=== PATIENT | male | born 1990 | race Caucasian/White ===

== ENCOUNTER 2023-12-20 22:20 | Emergency (ER) | payer SELFPAY | END 2023-12-20 22:28 | disposition home or self-care (01) | LOC: EC 22:20 | DX: Z02.1 Encounter for pre-employment examination (principal) | CPT/HCPCS: 51798; 99282 ==

== ENCOUNTER 2024-07-12 19:43 | Emergency (ER) | payer BC ==
--- NOTE | 2024-07-12 20:26 | ED ---
Lower Extremity Injury HPI - General Stated Complaint: L Foot Injury Time Seen by Provider: 07/12/24 20:25 Source: patient, RN notes reviewed - History of Present Illness Initial Comments: 33-year-old male presents emergency department for complaint of left ankle and foot pain. Patient said prior to arrival he was stepping out of his car when he twisted his ankle and heard and felt a popping sensation. He denies falling or other injuries at the time of the event. States he has not taken any medication since the injury. - Related Data Allergies Allergy/AdvReac Type Severity Reaction Status Date / Time No Known Allergies Allergy Verified 07/12/24 20:38 Review of Systems ROS Statement: Those systems with pertinent positive or pertinent negative responses have been documented in the HPI. ROS Other: All systems not noted in ROS Statement are negative. General Exam General appearance: alert, in no apparent distress Neck exam: Present: normal inspection. Absent: tenderness, meningismus, lymphadenopathy Respiratory exam: Present: normal lung sounds bilaterally. Absent: respiratory distress, wheezes, rales, rhonchi, stridor Cardiovascular Exam: Present: regular rate, normal rhythm, normal heart sounds. Absent: systolic murmur, diastolic murmur, rubs, gallop, clicks GI/Abdominal exam: Present: soft, normal bowel sounds. Absent: distended, tenderness, guarding, rebound, rigid Left Ankle exam: Present: tenderness, swelling, ecchymosis Foot/Toe exam: Present: tenderness Neurovascular tendon exam: Present: no vascular compromise Back exam: Present: normal inspection Course Vital Signs 07/12/24 07/12/24 20:34 21:48 Temperature 98.9 F Pulse Rate 89 81 Respiratory 18 16 Rate Blood Pressure 149/75 150/84 O2 Sat by Pulse 99 98 Oximetry Medical Decision Making - Medical Decision Making Was pt. sent in by a medical professional or institution (, PA, LIFT TRUCK MECHANIC, urgent care, hospital, or senior living...) When possible be specific @ -No Did you speak to anyone other than the patient for history (EMS, parent, family, police, friend...)? What history was obtained from this source @ -No Did you review nursing and triage notes (agree or disagree)? Why? @ -I reviewed and agree with nursing and triage notes Were old charts reviewed (outside hosp., previous admission, EMS record, old EKG, old radiological studies, urgent care reports/EKG's, senior living records)? Report findings @ -No old charts were reviewed Differential Diagnosis (chest pain, altered mental status, abdominal pain women, abdominal pain men, vaginal bleeding, weakness, fever, dyspnea, syncope, headache, dizziness, GI bleed, back pain, seizure, CVA, palpatations, mental health, musculoskeletal)? @ -Differential Musculoskeletal Muscular strain, contusion, ligament sprain, fracture, arthritis, septic arthritis, bursitis, cellulitis, muscle spasm, nerve compression, DVT, arterial occlusion, herpes zoster, electrolyte abnormality, tumor.... This is not meant to be in all inclusive list EKG interpreted by me (3pts min.). @ -None X-rays interpreted by me (1pt min.). @ -X-ray completed of the left ankle no evidence of acute fracture with subcut aneous swelling CT interpreted by me (1pt min.). @ -None done U/S interpreted by me (1pt. min.). @ -None done What testing was considered but not performed or refused? (CT, X-rays, U/S, l abs)? Why? @ -None What meds were considered but not given or refused? Why? @ -None Did you discuss the management of the patient with other professionals (professionals i.e. , PA, LIFT TRUCK MECHANIC, lab, RT, psych nurse, manager social work, parts sales manager, teacher, mortgage loan officer originator, shoe parts caser)? Give summary @ -No Was smoking cessation discussed for >3mins.? @ -No Was critical care preformed (if so, how long)? @ -No Were there social determinants of health that impacted care today? How? (Homelessness, low income, unemployed, alcoholism, drug addiction, transportation, low edu. Level, literacy, decrease access to med. care, assisted, rehab)? @ -No Was there de-escalation of care discussed even if they declined (Discuss DNR or withdrawal of care, Hospice)? DNR status @ -No What co-morbidities impacted this encounter? (DM, HTN, Smoking, COPD, CAD, Cancer, CVA, ARF, Chemo, Hep., AIDS, mental health diagnosis, sleep apnea, morbid obesity)? @ -None Was patient admitted / discharged? Hospital course, mention meds given and route, prescriptions, significant lab abnormalities, going to OR and other pertinent info. @ -Discharge. 33-year-old male presents emergency department with left foot and ankle pain. There is mild ecchymosis noted over the lateral malleolus and tenderness with edema. Patient is able to bear weight with full range of motion intact. Neurovascularly intact. Is better with dose of Tylenol. X-ray is unremarkable. He is placed in a Lukas wrap and supportive treatment discussed. Case discussed with Dr. Kemp Undiagnosed new problem with uncertain prognosis? @ -No Drug Therapy requiring intensive monitoring for toxicity (Heparin, Nitro, Insulin, Cardizem)? @ -No Were any procedures done? @ -No Diagnosis/symptom? @ -ankle sprain Acute, or Chronic, or Acute on Chronic? @ -acute Uncomplicated (without systemic symptoms) or Complicated (systemic symptoms)? @ -uncomplicated Side effects of treatment? @ -No Exacerbation, Progression, or Severe Exacerbation? @ -No Poses a threat to life or bodily function? How? (Chest pain, [place], [place], pneumonia, PE, COPD, DKA, ARF, appy, cholecystitis, CVA, Diverticulitis, Homicidal, Suicidal, threat to staff... and all critical care pts) @ -No Disposition Clinical Impression: Ankle sprain Disposition: HOME SELF-CARE Condition: Good Instructions (If sedation given, give patient instructions): Ankle Sprain (ED) Additional Instructions: Please return to the Emergency Department if symptoms worsen or any other concerns. Is patient prescribed a controlled substance at d/c from ED?: No Referrals: None,Stated [Primary Care Provider] - 1-2 days Time of Disposition: 21:40
[2024-07-12 20:44] VITALS: TEMP 98.9
--- NOTE | 2024-07-12 21:29 | XR ---
EXAMINATION TYPE: XR ankle complete LT DATE OF EXAM: 07/12/2024 9:07 PM COMPARISON: None CLINICAL INDICATION: Male, 33 years old with history of fall, pain; TECHNIQUE: XR ankle complete LT; frontal, lateral and oblique projections. FINDINGS: There is no evidence of acute osseous pathology. No evidence of subluxation or dislocation. Kager's fat pad is intact. Mild soft tissue swelling around the ankle. No radiopaque foreign bodies are ident ified. IMPRESSION: 1. No evidence of acute fracture. 2. Subcutaneous swelling around the ankle likely secondary to underlying soft tissue injury. [facility], , 07/12/2024 9:26 PM
[2024-07-12] MEDS: ACETAMINOPHEN TAB 325 MG TAB PO STA (21:33)
[2024-07-12 21:52] VITALS: BP 150/84; PULSE 81; RESP 16
== END 2024-07-12 21:48 | disposition home or self-care (01) ==
LOC: EC 19:43
DX: S93.402A Sprain of unspecified ligament of left ankle, initial encounter (principal); X50.1XXA Overexertion from prolonged static or awkward postures, initial encounter
CPT/HCPCS: 99283